=== PATIENT | female | born 1975 | race Caucasian/White ===

== ENCOUNTER 2018-12-29 11:32 | Emergency (ER) | payer MEDICAID ==
[2018-12-29] MEDS ORDERED: Dexamethasone 10 MG/ML SDV IM ONE (12:01)
--- NOTE | 2018-12-29 12:08 | EDM.PDOC ---
ED HPI GENERAL MEDICAL PROBLEM - General Chief Complaint: Skin Complaint Stated Complaint: HANDS AND FEET ARE ITCHING Time Seen by Provider: 12/29/18 11:40 Source of Information: Reports: Patient, RN Notes Reviewed History Limitations: Reports: No Limitations - History of Present Illness INITIAL COMMENTS - FREE TEXT/NARRATIVE: Patient is a 43-year-old female who presents to the ED the evaluation of itching feet and hands. Patient notes that this has been present for the last 2 days. She relates that her hands feel as if they are flushed, but they feel hot, and his having lots of itching and pins and needle feeling to the hands and feet. Patient does appreciate some small bumps to the area, but no open sores. The patient states that her hands and feet are somewhat painful, and throbbing. She denies any sort of change in detergents, perfumes, soaps, medications, or supplements. She notes that her grandchildren have been with them for the last 2 weeks however she has done their laundry with her detergent so is somewhat certain that she could not have had any irritant sort of contact from the grandchildren. She has been using a and D ointment, zinc oxide, Epsom salts, she states that warm water seems to make the pain and itching worse, and that ice makes it feel better from time to time. Patient does not have a primary care provider. Bilateral Hand Pain Score (Numeric/FACES): 3 - Related Data Allergies Allergy/AdvReac Type Severity Reaction Status Date / Time No Known Allergies Allergy Verified 12/29/18 11:42 Home Meds: Home Meds predniSONE [Deltasone] 20 mg PO ASDIRECTED #15 tablet 12/29/18 [Rx] Past Medical History - Past Health History Medical/Surgical History: Denies Medical/Surgical History Social & Family History - Tobacco Use Smoking Status *Q: Current Every Day Smoker Years of Tobacco use: 15 Packs/Tins Daily: 1 - Caffeine Use Caffeine Use: Reports: Coffee, Energy Drinks, Soda - Recreational Drug Use Recreational Drug Use: No ED ROS GENERAL - Review of Systems Review Of Systems: See Below Constitutional: Denies: Fever, Chills HEENT: Denies: Throat Pain, Throat Swelling Respiratory: Denies: Shortness of Breath, Wheezing Cardiovascular: Denies: Chest Pain Endocrine: Reports: No Symptoms GI/Abdominal: Denies: Diarrhea, Nausea, Vomiting : Reports: No Symptoms Musculoskeletal: Reports: No Symptoms Skin: Reports: Rash (SEE HPI) Neurological: Reports: No Symptoms Psychiatric: Reports: No Symptoms Hematologic/Lymphatic: Reports: No Symptoms Immunologic: Reports: No Symptoms ED EXAM, SKIN/RASH Exam: See Below Exam Limited By: No Limitations General Appearance: Alert, WD/WN, No Apparent Distress Throat/Mouth: Normal Inspection, Normal Lips, Normal Teeth, Normal Gums, Normal Oropharynx, Normal Voice, No Airway Compromise Respiratory/Chest: No Respiratory Distress, Lungs Clear, Normal Breath Sounds, No Accessory Muscle Use, Chest Non-Tender Cardiovascular: Normal Peripheral Pulses, Regular Rate, Rhythm, No Murmur Peripheral Pulses: 3+: Radial (L), Radial (R) Extremities: Normal Inspection (with exception of hand and feet), Normal Capillary Refill Neurological: Alert, Oriented, Normal Cognition, No Motor/Sensory Deficits Psychiatric: Normal Affect, Normal Mood Skin: Warm, Dry, Intact, Normal Color, Erythema, Increased Warmth, Rash (to bilateral hands and soles of feet. There are some fine bumps noted to the palm margins of the hands. Hands are itchy and tender to touch.) Location, Skin: Upper Extremity, Right, Upper Extremity, Left, Lower Extremity, Right, Lower Extremity, Left, Palms, Soles Characteristics: Papular, Fine, Erythematous Associated features: Warmth, Tenderness. No: Scaling, Crusting, Weeping Course - Vital Signs Last Recorded V/S: Last Vital Signs Temp 97.6 F 12/29/18 11:44 Pulse 82 12/29/18 11:44 Resp 20 12/29/18 11:44 BP 121/82 12/29/18 11:44 Pulse Ox 96 12/29/18 11:44 - Orders/Labs/Meds Meds: Medications Discontinued Medications Generic Name Dose Route Start Last Admin Trade Name Shoaibq PRN Reason Stop Dose Admin Dexamethasone 10 mg 12/29/18 12:01 12/29/18 12:15 Dexamethasone IM 12/29/18 12:02 10 mg ONETIME ONE Administration - Re-Assessments/Exams Free Text/Narrative Re-Assessment/Exam: 12/29/18 12:00 Patient presents to the ED for evaluation of a rash on her hands and feet. This is somewhat suspicious for contact irritant in nature. She is unsure what she could've come in contact with and we did not come up with any sort of certain thing as well. Patient will be given a 10 mg IM injection of dexamethasone, and an outpatient versus of prednisone, with recommendations take Benadryl and Pepcid for initial relief, she will need to follow up with primary care after the prednisone to make sure that her symptoms are improving. Departure - Departure Time of Disposition: 12:02 Disposition: Home, Self-Care 01 Condition: Fair Clinical Impression: Contact dermatitis Qualifiers: Contact dermatitis type: unspecified Contact dermatitis trigger: unspecified trigger Qualified Code(s): L25.9 - Unspecified contact dermatitis, unspecified cause - Discharge Information *PRESCRIPTION DRUG MONITORING PROGRAM REVIEWED*: No *COPY OF PRESCRIPTION DRUG MONITORING REPORT IN PATIENT [place]: No Prescriptions: predniSONE [Deltasone] 20 mg PO ASDIRECTED #15 tablet Instructions: Contact Dermatitis, [id number] Referrals: PCP,Unknown [Primary Care Provider] - Forms: ED Department Discharge Additional Instructions: You were evaluated in the ED today for your rash. You were given an injection of steroids to help alleviate some of the inflammation due to the rash. You were sent home with a prescription for a prednisone burst, please take as directed. You may take Benadryl 25 mg every 6 hours as needed for further itching relief, this medication can be sedating so please use caution. Recommend that you take some yemp-glr-gtoeemb Pepcid (Famotidine) daily as needed for itch relief, this is a histamine chiquis and can help provide some relief from itching. Recommend that you take Benadryl and Pepcid for the next couple days, and then taper to as needed. Your prednisone prescription was sent to () pharmacy located (). After you have finished the course of prednisone, recommend that you follow up with family practice provider of choice, our [facility] clinic number is [phone], the [place] clinic number is [phone]. Please return to the ED if your symptoms should change or worsen.
== END 2018-12-29 12:20 | disposition home or self-care (01) ==
LOC: JD.ED 11:32
DX: L25.9 Unspecified contact dermatitis, unspecified cause (principal); F17.210 Nicotine dependence, cigarettes, uncomplicated
CPT/HCPCS: 96372; 99282; J1100

== ENCOUNTER 2019-05-11 10:43 | Emergency (ER) | payer MEDICAID, OTHER ==
[2019-05-11] MEDS ORDERED: Acetaminophen/HYDROcodone 325-5 MG Tab PO ONE (11:09)
--- NOTE | 2019-05-11 11:14 | EDM.PDOC ---
ED HPI GENERAL MEDICAL PROBLEM - General Chief Complaint: Lower Extremity Injury/Pain Stated Complaint: R KNEE INJURY Time Seen by Provider: 05/11/19 11:01 Source of Information: Reports: Patient, Family (Son) History Limitations: Reports: No Limitations - History of Present Illness INITIAL COMMENTS - FREE TEXT/NARRATIVE: Ms. Carr is a pleasant 43-year-old woman who tells me that she slipped and fell when getting out of a truck around 23:00 to 23:30 last night, injuring her right knee. She reports pain primarily to the anterior and medial aspect of her knee, even at rest, but especially with any movement. She is otherwise uninjured. The patient states that she tore her right ACL many years ago, but never had it repaired. The patient states that she did not take any gzpn-tje-stfmvga medicines or apply an ice pack to her knee. The patient does not have a PCP. She did not receive an influenza vaccine this season, but agreed to receive one here today. Right Knee Pain Score (Numeric/FACES): 9 - Related Data Allergies Allergy/AdvReac Type Severity Reaction Status Date / Time No Known Allergies Allergy Verified 05/11/19 11:00 Home Meds: Home Meds predniSONE [Deltasone] 20 mg PO ASDIRECTED #15 tablet 12/29/18 [Rx] Acetaminophen/HYDROcodone [[place] 325-5 MG] 1 - 2 tab PO Q6H PRN #16 tablet 05/11 [Rx] Past Medical History - Past Health History Medical/Surgical History: Denies Medical/Surgical History Social & Family History - Caffeine Use Caffeine Use: Reports: Coffee, Energy Drinks, Soda Review of Systems - Review of Systems Review Of Systems: Comprehensive ROS is negative, except as noted in HPI. ED EXAM, GENERAL - Physical Exam Exam: See Below Exam Limited By: No Limitations General Appearance: Alert, WD/WN, No Apparent Distress Extremities: Other (No visible abnormality to the right knee, when compared to the left, such as swelling, effusion, erythema, ecchymosis, or abrasion. The patient reports tenderness primarily along the medial joint, and there is some laxity to stressing the medial collateral ligament. No tenderness or laxity to stressing the lateral collateral ligament. Anterior and posterior drawer signs are absent. Neurovascular status of the right lower extremity is intact.) Course - Vital Signs Last Recorded V/S: Last Vital Signs Temp 37.2 C 05/11/19 11:00 Pulse 87 05/11/19 11:00 Resp 17 05/11/19 11:00 BP 164/101 H 05/11/19 11:00 Pulse Ox 97 05/11/19 11:00 - Orders/Labs/Meds Orders: Active Orders 24 hr Category Date Time Status Influenza Vaccine Charge [RC] .DISCHARGE Care 05/11/19 11:46 Active Knee 3V Rt [CR] Stat Exams 05/11/19 11:08 Taken FLU Vacc [id number](6MOS+)/PF [Fluzone Quad Med 05/11/19 12:00 Once Syringe] 60 mcg IM .ONCE ONE DME for Discharge [COMM] Stat Oth 05/11/19 11:37 Ordered DME for Discharge [COMM] Stat Oth 05/11/19 11:46 Ordered Medication Orders Influenza Virus Vaccine (Fluzone Quad Syringe) 60 mcg IM .ONCE ONE Stop: 05/11/19 12:01 Meds: Medications Generic Name Dose Route Start Last Admin Trade Name Freq PRN Reason Stop Dose Admin Influenza Virus Vaccine 60 mcg 05/11/19 12:00 Fluzone Quad Syringe IM 05/11/19 12:01 .ONCE ONE Discontinued Medications Generic Name Dose Route Start Last Admin Trade Name Freq PRN Reason Stop Dose Admin Hydrocodone Bitart/Acetaminophen 2 tab 05/11/19 11:09 05/11/19 11:18 [place] 325-5 Mg PO 05/11/19 11:10 2 tab ONETIME ONE Administration Influenza Virus Vaccine 1 each 05/11/19 11:46 Pharmacy To Dose - Influenza Vaccine IM 05/11/19 11:47 ONETIME ONE - Re-Assessments/Exams Free Text/Narrative Re-Assessment/Exam: 05/11/19 11:09 The examination of the patient's right knee is concerning for a medial collateral ligament injury. I have ordered x-rays of the knee, along with some [place]. An ice pack will be applied. 05/11/19 11:33 3-view radiographs of the right knee appear to be normal, although a small effusion is possible. No fractures or dislocations identified. Formal read per the Radiologist pending. 05/11/19 11:48 X-ray results discussed with the patient and her son. She feels much better after the application of an ice pack. The patient will be fitted with a knee immobilizer and crutches. I would like her to take yovl-hmm-vgpdtte ibuprofen ywymwc-xod-hdizy and continue icing her knee for the next couple of days. I will discharge her home with a prescription for [place] and a referral to Dr. Greene. The patient will receive an influenza vaccine prior to discharge. Departure - Departure Time of Disposition: 11:49 Disposition: Home, Self-Care 01 Condition: Good Clinical Impression: MCL sprain of right knee - Discharge Information *PRESCRIPTION DRUG MONITORING PROGRAM REVIEWED*: Not Applicable *COPY OF PRESCRIPTION DRUG MONITORING REPORT IN PATIENT [place]: Not Applicable Prescriptions: Acetaminophen/HYDROcodone [[place] 325-5 MG] 1 - 2 tab PO Q6H PRN #16 tablet PRN Reason: Pain (Severe 7-10) Referrals: Ney Greene MD [Physician] - Forms: ED Department Discharge Additional Instructions: You were seen in the emergency room after slipping and injuring your right knee when getting out of a truck last night. Workup in the ER included x-rays of your right knee, which did not show any broken bones or dislocations. Based on your history, physical exam, and ER x-rays, you have most likely injured your right medial collateral ligament (MCL). You have been fitted with a knee immobilizer and crutches. The knee immobilizer goes on over your clothes. Apply it each morning, and remove it at bedtime. Be very careful when going up or down stairs. We recommend that you apply an ice pack to your right knee as much as possible over the next 2 days, to help minimize swelling. We recommend that you take mtxo-whp-lezjolp ibuprofen, 3 tablets (600 mg) every 8 hours, with food, around the clock, for the next couple of days. You may also take the prescription [place], 1 to 2 tablets up to every 6 hours, as needed for pain not relieved by ibuprofen. If you take [place], do not drive or operate heavy machinery for 12 hours afterwards. [place] may cause constipation , so consider taking a stool softener. Follow-up with the Orthopedic Surgeon Dr. Ney Greene at the next available appointment. If any other problems, please do not hesitate to return to the ER. *You received an influenza vaccine during your ER visit.* Sepsis Event Note - Evaluation Sepsis Screening Result: No Definite Risk - Focused Exam Vital Signs: Vital Signs Temp Pulse Resp BP Pulse Ox 05/11/19 11:00 37.2 C 87 17 164/101 H 97 Date Exam was Performed: 05/11/19 Time Exam was Performed: 11:57 - My Orders Last 24 Hours: My Active Orders 05/11/19 11:08 Knee 3V Rt [CR] Stat 05/11/19 11:37 DME for Discharge [COMM] Stat 05/11/19 11:46 Influenza Vaccine Charge [RC] .DISCHARGE DME for Discharge [COMM] Stat 05/11/19 12:00 FLU Vacc [id number](6MOS+)/PF [Fluzone Quad Syringe] 60 mcg IM .ONCE ONE - Assessment/Plan Last 24 Hours: My Active Orders 05/11/19 11:08 Knee 3V Rt [CR] Stat 05/11/19 11:37 DME for Discharge [COMM] Stat 05/11/19 11:46 Influenza Vaccine Charge [RC] .DISCHARGE DME for Discharge [COMM] Stat 05/11/19 12:00 FLU Vacc [id number](6MOS+)/PF [Fluzone Quad Syringe] 60 mcg IM .ONCE ONE
[2019-05-11] MEDS ORDERED: FLU Vacc QS2019-20(6MOS+)/PF 60 MCG/0.5 ML SYRINGE IM ONE (12:00)
--- NOTE | 2019-05-11 16:33 | CR ---
Right knee: AP, lateral and sunrise patellar views of the right knee were obtained. Comparison: No previous knee exam. Spur noted off the patella at the attachment of the quadriceps tendon. Minimal medial joint space narrowing is seen. Lateral joint space is preserved. No acute fracture, dislocation or other bony abnormality is is identified. No joint effusion is seen. Impression: 1. Slight medial joint space narrowing. Spur off the patella. 2. Nothing acute is seen on three-view right knee exam. Diagnostic code #2 This report was dictated in [place] Standard Time
== END 2019-05-11 12:06 | disposition home or self-care (01) ==
LOC: JD.ED 10:43
DX: S83.411A Sprain of medial collateral ligament of right knee, initial encounter (principal); Z23 Encounter for immunization; W01.0XXA Fall on same level from slipping, tripping and stumbling without subsequent striking against object, initial encounter
CPT/HCPCS: 73562; 90471; 90686; 99283; A9270; G0008